=== PATIENT | male | born 1970 | race Caucasian/White ===

== ENCOUNTER 2022-09-27 16:43 | Emergency (ER) | payer OTHER ==
[~2022-09-27] VITALS: Ht 188 cm; Wt 100.0 kg
[~2022-09-27 16:43] MED LIST: NO MEDS
[2022-09-27 17:01] VITALS: BP 142/92
[2022-09-27 17:16] VITALS: BP 141/94
[2022-09-27 17:16] LABS: BASO% 0.2 % (0-3); EOS% 0.4 % (0-8); HEMOGLOBIN 15.6 g/dl (14.0-18.0); IMMATURE GRANULOCYTES 0.3 % (0.0-5.0); LYMPH% 18.2 % (15-41); MEAN CELL VOLUME 90.7 fL CALC (80.0-100.0); MEAN CORPUSCULAR HGB 30.1 pG CALC (26.0-32.0); MEAN CORPUSCULAR HGB CONC 33.2 g/dL CAL (32.0-36.0); MONO% 8.8 % (2-13); NEUT# 17.12 thou/uL (1.82-7.42); NEUT% 72.1 % (42-76); RED BLOOD COUNT 5.18 mill/uL (4.70-6.10); RED CELL DISTRI WIDTH 12.5 % (11.5-15.5)
[2022-09-27 17:21] VITALS: BP 132/106
[2022-09-27 17:27] LABS: ALBUMIN 4.8 g/dL (3.2-5.0); ALKALINE PHOSPHATASE 57 u/l (38-126); ANION GAP 16 (6-22 (CALC)); BUN 14 mg/dL (9-20); BUN/CREATININE RATIO 17 (12-20 (CALC)); CARBON DIOXIDE 19 mmol/l (22-30); CHLORIDE 105 mmol/l (95-108); CREATININE 0.8 mg/dL (0.7-1.3); GFR FOR AFR.AMER. > 60 ML/MIN (>=60 (CALC)); GFR OTHER RACES > 60 ML/MIN (>=60 (CALC)); POTASSIUM 4.4 mmol/l (3.5-5.1); SGOT/AST 30 u/l (17-59); SODIUM 136 mmol/l (137-146); TOTAL PROTEIN 8.3 g/dL (6.3-8.2)
[2022-09-27 17:28] LABS: BILIRUBIN, TOTAL 0.8 mg/dL (0.2-1.3)
[2022-09-27 17:31] VITALS: BP 152/87
[2022-09-27 18:55] LABS: URINE BILIRUBIN - DIPSTICK Negative (NEGATIVE); URINE BLOOD DIPSTICK Negative (NEGATIVE); URINE COLOR Yellow; URINE GLUCOSE - DIPSTICK Negative (NEGATIVE); URINE KETONE Negative (NEGATIVE); URINE NITRITE - DIPSTICK Negative (Negative); URINE PROTEIN - DIPSTICK Negative (NEG-TRACE); URINE UROBILINOGEN - DIPSTICK 0.2 E.U./dL (0.2)
[2022-09-27 19:01] LABS: URINE LEUK ESTERASE Large (NEGATIVE)
[2022-09-27 19:10] LABS: URINE EPITHELIAL CELLS FEW EPI/hpf (0-FEW); URINE SQUAMOUS EPITHELIAL CELL FEW EPI/hpf (0-FEW)
[2022-09-27 19:11] LABS: URINE BACTERIA MANY hpf
[2022-09-27] MEDS ORDERED: NAPROXEN500 MG PO (20:13)
[2022-09-27] MEDS ORDERED: LEVOFLOXACIN500MG PO (20:13)
[2022-09-27 21:10] VITALS: BP 152/87
== END 2022-09-27 21:10 | disposition designated cancer center or children's hospital (05) | DRG 728 ==
LOC: ED 16:43
PROVIDERS: Nurse Practitioner
DX: N45.1 Epididymitis (principal)